=== PATIENT | female | born 2000 | race Caucasian/White ===

== ENCOUNTER 2022-11-15 12:12 | Emergency (ER) | payer MEDICAID ==
--- NOTE | 2022-11-15 12:18 | ERPHSYRPT ---
- History of Present Illness Time Seen by Provider: 11/15/22 12:18 Source: patient Exam Limitations: no limitations Physician History: This is a 22-year-old white female who was driving in her car to her mother's house prior to arrival to emergency department and during this drive she states "things got dark". She states her eyes were open but she really could not see. Patient pulled over. Her boyfriend was in the car. He does not have a license to drive and that is why she was driving. He stated to her that her eyes rolled up in the back of her head and she vomited. Patient is 30 weeks . She is known to be anemic and is post to start iron tablets tomorrow patient denies chest pain. She denies shortness of breath. She denies abdominal pain. She has had no hematemesis, hematuria, rectal bleeding or vaginal bleeding symptoms. Patient states that she has not suffered any traumatic head injuries. Patient states she was feeling fine this morning. There is been no change to her medications other than she is to start iron tablets tomorrow. Patient has no history of any seizure disorders. Patient states she is never had anything like this before. Patient states she has been eating and drinking well. Timing/Duration: today Severity: mild (To moderate) Character of Deficits: none Deficits: no difficulties Baseline/Normal Cognition: alert 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 Current Cognition: alert 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 Baseline Gait: walks w/o assistance Associated Symptoms: loss of consciousness (Possible), nausea, vomiting, No ringing in ears, No seizures, No slurred speech, No trouble walking Allergies/Adverse Reactions: No Known Drug Allergies Allergy (Verified 11/15/22 12:32) Home Medications: Escitalopram Oxalate 10 mg PO DAILY 11/15/22 [History] Ferrous Sulfate 325 mg PO DAILY 11/15/22 [History] Pnv 119/Iron Fum/Folic Acid [ 19 Tablet] 1 each PO DAILY 11/15/22 [History] Travel Risk - International Travel Have you traveled outside of the country in past 3 weeks: No - Coronavirus Screening Are you exhibiting any of the following symptoms?: No Close contact with a COVID-19 positive Pt in past 14-21 Days: No - Review of Systems Constitutional: No Symptoms Eyes: No Symptoms Ears, Nose, & Throat: No Symptoms Respiratory: No Symptoms Cardiac: No Symptoms Abdominal/Gastrointestinal: Nausea, Vomiting, No Abdominal Pain, No Diarrhea, No Constipation Genitourinary Symptoms: Musculoskeletal: No Symptoms Skin: No Symptoms Neurological: No Symptoms Psychological: No Symptoms Endocrine: No Symptoms Hematologic/Lymphatic: No Symptoms Immunological/Allergic: No Symptoms All Other Systems: Reviewed and Negative - Past Medical History Pertinent Past Medical History: Yes - Past Surgical History Past Surgical History: Yes - Nursing Vital Signs Nursing Vital Signs: Initial Vital Signs Temperature 98.5 F 11/15/22 12:24 Pulse Rate 106 H 11/15/22 12:24 Respiratory Rate 20 11/15/22 12:24 Blood Pressure 109/67 11/15/22 12:24 O2 Sat by Pulse Oximetry 99 11/15/22 12:24 Pain Scale Pain Intensity 0 - [place] Coma Scale Best Eye Response ([place]): (4) open spontaneously Best Verbal Response ([place]): (5) oriented Best Motor Response ([place]): (6) obeys commands [place] Total: 15 - Physical Exam General Appearance: no apparent distress, alert, anxiety Eye Exam: bilateral eye: normal inspection, PERRL, EOMI Ears, Nose, Throat Exam: normal ENT inspection, moist mucous membranes Neck Exam: normal inspection, non-tender, supple, full range of motion Respiratory: normal breath sounds, lungs clear, airway intact, No chest tenderness, No respiratory distress Cardiovascular: regular rate/rhythm, normal heart sounds, normal peripheral pulses Gastrointestinal: soft, normal bowel sounds, No tenderness Pelvic Exam: not done Rectal Exam: not done Back Exam: normal inspection, normal range of motion, No CVA tenderness, No vertebral tenderness Extremity Exam: normal inspection, normal range of motion, pelvis stable Mental Status: alert, 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, 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 Exam: normal hearing, normal speech, PERRL, tongue midline Coordination/Gait: normal gait, normal cerebellar function Motor/Sensory: no motor deficit, no sensory deficit, no pronator drift Skin Exam: normal color, warm, dry SpO2 Interpretation: normal O2 Delivery: Room Air Ordered Tests: Active Orders 24 hr Category Date Time Status Heart Tones-ED STAT Care 11/15/22 12:59 Active HEAD WITHOUT CONTRAST [CT] Stat Exams 11/15/22 12:58 Taken CBC W DIFF Stat Lab 11/15/22 12:35 Completed CMP Stat Lab 11/15/22 12:35 Completed CULTURE,URINE Stat Lab 11/15/22 12:43 Received LIPASE Stat Lab 11/15/22 12:35 Completed MAGNESIUM Stat Lab 11/15/22 12:35 Completed POCT GLUCOSE Stat Lab 11/15/22 12:38 Completed UA W/RFX UR CULTURE Stat Lab 11/15/22 12:43 Completed Urine Triage Profile Stat Lab 11/15/22 12:43 Completed Medication Summary Generic Name Dose Route Start Last Admin Trade Name Freq PRN Reason Stop Dose Admin Ceftriaxone Sodium/Dextrose 1 g in 50 mls @ 100 mls/hr 11/15/22 14:25 Rocephin 1 Gm-D5w 50 Ml Bag IV 11/15/22 14:54 STAT STA Discontinued Medications Generic Name Dose Route Start Last Admin Trade Name Freq PRN Reason Stop Dose Admin Sodium Chloride 1,000 mls @ 999 mls/hr 11/15/22 12:41 11/15/22 13:52 Sodium Chloride 0.9% 1000 Ml IV 11/15/22 13:41 Infused .Q1H1M STA Infusion Sodium Chloride Confirm 11/15/22 12:45 Sodium Chloride 0.9% 1000 Ml Administered 11/15/22 12:46 Dose 1,000 mls @ ud .ROUTE .STK-MED ONE Ondansetron HCl 4 mg 11/15/22 12:41 11/15/22 12:45 Ondansetron Hcl 4 Mg/2 Ml Vial IV 11/15/22 12:42 4 mg STAT ONE Administration Ondansetron HCl Confirm 11/15/22 12:45 Ondansetron Hcl 4 Mg/2 Ml Vial Administered 11/15/22 12:46 Dose 4 mg .ROUTE .STK-MED ONE Lab/Rad Data: Laboratory Result Diagrams 11/15/22 12:35 11/15/22 12:35 Laboratory Results 11/15/22 11/15/22 11/15/22 Range/Units 12:56 12:43 12:43 WBC (4.0-10.5) x10^3/uL RBC (4.1-5.4) x10^6/uL Hgb (12.0-16.0) g/dL Hct (35-47) % MCV (78-100) fL MCH (26-32) pg MCHC (32-36) g/dL RDW (11.5-14.0) % Plt Count (150-450) x10^3/uL MPV (7.5-11.0) fL Gran % (36.0-66.0) % Immature Gran % (Auto) (0.00-0.4) % Nucleat RBC Rel Count (0.00-0.1) % Eos # (Auto) (0-0.5) x10^3/uL Immature Gran # (Auto) (0.00-0.03) x10^3u/L Absolute Lymphs (auto) (1.0-4.6) x10^3/uL Absolute Monos (auto) (0.0-1.3) x10^3/uL Absolute Nucleated RBC (0.00-0.01) x10^3u/L Lymphocytes % (24.0-44.0) % Monocytes % (0.0-12.0) % Eosinophils % (0.00-5.0) % Basophils % (0.0-0.4) % Absolute Granulocytes (1.4-6.9) x10^3/uL Basophils # (0-0.4) x10^3/uL Sodium (137-145) mmol/L Potassium (3.5-5.1) mmol/L Chloride (98-107) mmol/L Carbon Dioxide (22-30) mmol/L Anion Gap (5-15) MEQ/L BUN (7-17) mg/dL Creatinine (0.52-1.04) mg/dL Estimated GFR ML/MIN Glucose (74-106) mg/dL POC Glucometer (74 to 106) mg/dL Calcium (8.4-10.2) mg/dL Magnesium (1.6-2.3) mg/dL Total Bilirubin (0.2-1.3) mg/dL AST (14-36) U/L ALT (0-35) U/L Alkaline Phosphatase (38-126) U/L Serum Total Protein (6.3-8.2) g/dL Albumin (3.5-5.0) g/dL Lipase (23-300) U/L Urine Color Dark Yellow A (Yellow) Urine Appearance Turbid A (Clear) Urine pH 6.0 (4.6-8.0) Ur Specific [place] 1.025 (1.005-1.030) Urine Protein 100 A (Negative) Urine Glucose (UA) 100 A (Negative) mg/dL Urine Ketones Trace A (Negative) Urine Blood Trace (Negative) Urine Nitrite Negative (Negative) Urine Bilirubin Negative (Negative) Urine Urobilinogen 1.0 A (0.2) mg/dL Ur Leukocyte Esterase Large A (Negative) U Hyaline Cast (Auto) 3-5 A (0-2) /LPF Urine Microscopic RBC 0-2 (0-5) /HPF Urine Microscopic WBC >100 A (0-5) /HPF Ur Epithelial Cells Many A (None Seen) /HPF Urine Bacteria Many A (None Seen) /HPF Urine Culture Reflexed YES (NO) Urine Opiates Level NEGATIVE (NEGATIVE) Ur Methadone NEGATIVE (NEGATIVE) Urine Barbiturates NEGATIVE (NEGATIVE) Ur Phencyclidine (PCP) NEGATIVE (NEGATIVE) Urine Amphetamine NEGATIVE (NEGATIVE) U Benzodiazepine Level NEGATIVE (NEGATIVE) Urine Cocaine NEGATIVE (NEGATIVE) Urine Marijuana (THC) POSITIVE (NEGATIVE) Influenza Type A Ag NEGATIVE (NEGATIVE) Influenza Type B Ag NEGATIVE (NEGATIVE) RSV (PCR) NEGATIVE (Negative) SARS-CoV-2 (PCR) NEGATIVE (NEGATIVE) 11/15/22 11/15/22 11/15/22 Range/Units 12:38 12:35 12:35 WBC 5.5 (4.0-10.5) x10^3/uL RBC 3.51 L (4.1-5.4) x10^6/uL Hgb 9.4 L (12.0-16.0) g/dL Hct 29.4 L (35-47) % MCV 83.8 (78-100) fL MCH 26.8 (26-32) pg MCHC 32.0 (32-36) g/dL RDW 13.1 (11.5-14.0) % Plt Count 265 (150-450) x10^3/uL MPV 11.0 (7.5-11.0) fL Gran % 61.6 (36.0-66.0) % Immature Gran % (Auto) 0.4 (0.00-0.4) % Nucleat RBC Rel Count 0.0 (0.00-0.1) % Eos # (Auto) 0.02 (0-0.5) x10^3/uL Immature Gran # (Auto) 0.02 (0.00-0.03) x10^3u/L Absolute Lymphs (auto) 1.71 (1.0-4.6) x10^3/uL Absolute Monos (auto) 0.33 (0.0-1.3) x10^3/uL Absolute Nucleated RBC 0.00 (0.00-0.01) x10^3u/L Lymphocytes % 30.9 (24.0-44.0) % Monocytes % 6.0 (0.0-12.0) % Eosinophils % 0.4 (0.00-5.0) % Basophils % 0.7 (0.0-0.4) % Absolute Granulocytes 3.41 (1.4-6.9) x10^3/uL Basophils # 0.04 (0-0.4) x10^3/uL Sodium 134 L (137-145) mmol/L Potassium 3.7 (3.5-5.1) mmol/L Chloride 106 (98-107) mmol/L Carbon Dioxide 22 (22-30) mmol/L Anion Gap 9.7 (5-15) MEQ/L BUN 7 (7-17) mg/dL Creatinine 0.63 (0.52-1.04) mg/dL Estimated GFR > 60.0 ML/MIN Glucose 104 (74-106) mg/dL POC Glucometer 97 (74 to 106) mg/dL Calcium 8.6 (8.4-10.2) mg/dL Magnesium 1.7 (1.6-2.3) mg/dL Total Bilirubin 0.40 (0.2-1.3) mg/dL AST 28 (14-36) U/L ALT 18 (0-35) U/L Alkaline Phosphatase 92 (38-126) U/L Serum Total Protein 6.8 (6.3-8.2) g/dL Albumin 3.7 (3.5-5.0) g/dL Lipase 50 (23-300) U/L Urine Color (Yellow) Urine Appearance (Clear) Urine pH (4.6-8.0) Ur Specific [place] (1.005-1.030) Urine Protein (Negative) Urine Glucose (UA) (Negative) mg/dL Urine Ketones (Negative) Urine Blood (Negative) Urine Nitrite (Negative) Urine Bilirubin (Negative) Urine Urobilinogen (0.2) mg/dL Ur Leukocyte Esterase (Negative) U Hyaline Cast (Auto) (0-2) /LPF Urine Microscopic RBC (0-5) /HPF Urine Microscopic WBC (0-5) /HPF Ur Epithelial Cells (None Seen) /HPF Urine Bacteria (None Seen) /HPF Urine Culture Reflexed (NO) Urine Opiates Level (NEGATIVE) Ur Methadone (NEGATIVE) Urine Barbiturates (NEGATIVE) Ur Phencyclidine (PCP) (NEGATIVE) Urine Amphetamine (NEGATIVE) U Benzodiazepine Level (NEGATIVE) Urine Cocaine (NEGATIVE) Urine Marijuana (THC) (NEGATIVE) Influenza Type A Ag (NEGATIVE) Influenza Type B Ag (NEGATIVE) RSV (PCR) (Negative) SARS-CoV-2 (PCR) (NEGATIVE) - Progress Progress: improved Progress Note: 11/15/22 12:54 I had a long discussion with the patient and the patient's mother regarding performing a CT scan of this patient's head. I think this study can rule out significant issues. I told her there is low risk that she has a significant, acute intracranial abnormality. However, she is aware I cannot say until after 1 is performed. There are low radiation risks to her and the baby. The patient will have a discussion with her mother and they will decide whether or not to have the CAT scan of the head performed. 11/15/22 14:25 This patient's medical work-up and level of complexity is moderate. Based on the patient's history of present illness, review of past medical history, review of patient's medication list, drug allergy list and findings on physical examination, we ordered an intravenous line to place, infusion of 1 L of normal saline solution, obtaining a CT scan of the head after discussion of risk benefits alternatives, obtaining CBC, CMP, magnesium and urinalysis. I reviewed the results of the work-up. The patient is mildly anemic, has a significant urinary tract infection and mild dehydration. The CT scan of her head without contrast shows no acute intracranial abnormality. The patient was provided 1 g intravenous Rocephin to treat her urinary tract infection. Discharge plan is to provide the patient with a prescription for Keflex and to have her follow-up with her family member caretaker next week. She is to start her iron medication as prescribed and drink plenty of clear liquid fluids. Counseled pt/family regarding: lab results, diagnosis, need for follow-up Medical Desision Making - Independent Historian Additional History obtained from: Mother - Discussion of managment Reviewed:: Test results Agreed on:: Treatment plan, need for follow-up - Diagnostic Testing Diagnostic test were ordered, analyzed, and reviewed by me: Yes Radiological Interpretation: Reviewed by me, Teleradiologist Report - Risk of complications The pt has a mod risk of morbidity or mortality based on: Need for prescription drug management - Departure Departure Disposition: Home Clinical Impression: Anemia affecting , Mild dehydration, Urinary tract infection affecting Condition: Stable Critical Care Time: No Additional Instructions: Drink plenty of clear liquid fluids. Take your antibiotics as prescribed. Continue your iron sulfate as prescribed. Follow-up with your family member caretaker on , 11/17/2022 to provide further instructions and management. Prescriptions: Cephalexin Mh 500 mg [Keflex 500 mg] 500 mg PO TID #21 cap
[2022-11-15] MEDS ORDERED: Zofran 4 MG/2 ML VIAL IV ONE (12:41)
[2022-11-15] MEDS ORDERED: Sodium Chloride 0.9% 1000 ML 1,000 ML IV STA (12:41)
[2022-11-15] MEDS ORDERED: Zofran 4 MG/2 ML VIAL ONE (12:45)
[2022-11-15] MEDS ORDERED: Sodium Chloride 0.9% 1000 ML 1,000 ML ONE (12:45)
[2022-11-15 12:54] LABS: Absolute Neutrophil Ct (ANC) 3.41 x10^3/uL (1.4-6.9); BASOPHIL % 0.7 % (0.0-0.4); Basophil (Absolute #) 0.04 x10^3/uL (0-0.4); Eosinophil % 0.4 % (0.00-5.0); Eosinophil (Absolute #) 0.02 x10^3/uL (0-0.5); Hematocrit 29.4 % (35-47); Hemoglobin 9.4 g/dL (12.0-16.0); IMMATURE GRAN # 0.02 x10^3u/L (0.00-0.03); IMMATURE GRAN % 0.4 % (0.00-0.4); Lymphocyte (Absolute #) 1.71 x10^3/uL (1.0-4.6); Lymphocytes % 30.9 % (24.0-44.0); Mean Cell Volume 83.8 fL (78-100); Mean Corpuscular Hemoglobin 26.8 pg (26-32); Monocyte (Absolute #) 0.33 x10^3/uL (0.0-1.3); Neutrophil % 61.6 % (36.0-66.0); Platelet Count 265 x10^3/uL (150-450); Red Blood Count 3.51 x10^6/uL (4.1-5.4); Red Cell Distribution Width 13.1 % (11.5-14.0); White Blood Count 5.5 x10^3/uL (4.0-10.5)
[2022-11-15 13:07] LABS: ALBUMIN 3.7 g/dL (3.5-5.0); ALKALINE PHOSPHATASE 92 U/L (38-126); BLOOD UREA NITROGEN 7 mg/dL (7-17); CHLORIDE 106 mmol/L (98-107); Calcium 8.6 mg/dL (8.4-10.2); Carbon Dioxide 22 mmol/L (22-30); Creatinine 1 0.63 mg/dL (0.52-1.04); EST GLOMERULAR FILTRATION RATE > 60.0 ML/MIN; Glucose 104 mg/dL (74-106); LIPASE 50 U/L (23-300); MAGNESIUM 1.7 mg/dL (1.6-2.3); Potassium 3.7 mmol/L (3.5-5.1); SGOT/AST 28 U/L (14-36); SGPT/ALT 18 U/L (0-35); Total Protein 6.8 g/dL (6.3-8.2)
[2022-11-15 13:08] LABS: SODIUM 134 mmol/L (137-145)
[2022-11-15 13:14] LABS: ANION GAP 9.7 MEQ/L (5-15)
[2022-11-15 13:15] LABS: Appearance Turbid (Clear); Bacteria Many /HPF (None Seen); Bilirubin Negative (Negative); Blood Trace (Negative); Epithelial Cells Many /HPF (None Seen); Glucose, Urine 100 mg/dL (Negative); Ketones Trace (Negative); Leukocyte Esterase Large (Negative); Nitrite Negative (Negative); Protein,Urine Dip 100 (Negative); RBC 0-2 /HPF (0-5); Specific Gravity 1.025 (1.005-1.030); WBC >100 /HPF (0-5)
[2022-11-15 13:27] LABS: ADD URINE CULTURE? YES (NO)
[2022-11-15 13:35] LABS: Amphetamine,Urine NEGATIVE (NEGATIVE); Barbiturate,Urine NEGATIVE (NEGATIVE); Benzodiazepine,Urine NEGATIVE (NEGATIVE); Cocaine,Urine NEGATIVE (NEGATIVE); Methadone,Urine NEGATIVE (NEGATIVE); Opiate,Urine NEGATIVE (NEGATIVE); PCP,Urine NEGATIVE (NEGATIVE); THC,Urine POSITIVE (NEGATIVE)
[2022-11-15 13:35] LABS: INFLUENZA A NEGATIVE (NEGATIVE); INFLUENZA B NEGATIVE (NEGATIVE); RESPIRATORY SYNCTIAL VIRUS NEGATIVE (Negative); SARS-CoV-2 Xpert Express NEGATIVE (NEGATIVE)
[2022-11-15] MEDS ORDERED: ROCEPHIN 1 Gm-D5w 50 ml Bag** 1 G/50 ML IVPB IV STA (14:25)
[2022-11-15 14:26] VITALS: BP 106/55; PULSE 90; O2SAT 96
[2022-11-15] MEDS ORDERED: ROCEPHIN 1 Gm-D5w 50 ml Bag** 1 G/50 ML IVPB IV ONE (14:26)
--- NOTE | 2022-11-15 19:39 | XRAY ---
Indication: Syncope. 30 weeks . History anemia. Multiple contiguous axial images obtained through the head without contrast. Comparison: None Normal appearing brain parenchyma, ventricles, and bony calvarium. Visualized paranasal sinuses and mastoid air cells are clear. Impression: Normal CT head without contrast exam. Comment: Preliminary interpretation made by [facility]. No critical discrepancy.
== END 2022-11-15 15:06 | disposition home or self-care (01) ==
LOC: ED 12:12
DX: O99.013 Anemia complicating pregnancy, third trimester (principal); D64.9 Anemia, unspecified; O23.43 Unspecified infection of urinary tract in pregnancy, third trimester; N39.0 Urinary tract infection, site not specified; Z3A.30 30 weeks gestation of pregnancy; E86.0 Dehydration; H53.123 Transient visual loss, bilateral; Z79.899 Other long term (current) drug therapy
CPT/HCPCS: 0241U; 36415; 70450; 80053; 80307; 81001; 82947; 83690; 83735; 85025; 87086; 96360; 96365; 96374; 99284; J0696; J2405